=== PATIENT | female | born 1990 | race Caucasian/White ===

== ENCOUNTER 2018-01-01 22:08 | Emergency (ER) | END 2018-01-02 00:58 | disposition home or self-care (01) ==

== ENCOUNTER 2018-07-27 18:15 | Emergency (ER) | payer MEDICAID ==
[~2018-07-27] VITALS: Ht 167.6 cm; Wt 136.1 kg
[~2018-07-27 18:15] MED LIST: IBUP-1542 PO
[2018-07-27 18:33] VITALS: BP 137/68; PULSE 100; RESP 20; Ht 167.6 cm; Wt 136.1 kg
[2018-07-27] MEDS ORDERED: IBUPROFEN 800 MG TAB PO ONE (21:30)
[2018-07-27] MEDS ORDERED: IBUP800T48 PO (23:12)
--- NOTE | 2018-07-27 23:14 | ERD ---
ER Documentation Chief Complaint Chief Complaint lt ankle pain sice yesterday denies trauma HPI 27-year-old female presents with left ankle pain since yesterday. She was walking a lot but denies any fall or injury. Denies any additional joint pains, fevers, vomiting, shortness breath, chest pain, additional symptoms. ROS All systems reviewed and are negative except as per history of present illness. Medications Home Meds Active Scripts Ibuprofen* (Motrin*) 800 Mg Tab, 800 MG PO Q6, #20 TAB Prov:XIN HARDWIKC MD 07/27/18 Ibuprofen* (Motrin*) 600 Mg Tab, 600 MG PO Q6H PRN for PAIN AND OR ELEVATED TEMP, #30 TAB Prov:HÉCTOR CANALES NP 01/02/18 Reported Medications [none] Unknown Strength No Conflict Check 01/01/18 Allergies Allergies: Coded Allergies: Penicillins (Verified Allergy, Unknown, 07/27/18) PMhx/Soc Medical and Surgical Hx: pt denies Surgical Hx History of Surgery: Yes (caesarian section x 1) Hx Alcohol Use: No Hx Substance Use: No Hx Tobacco Use: No FmHx Family History: No diabetes, No coronary disease, No other Physical Exam Vitals Vital Signs Date Temp Pulse Resp B/P (MAP) Pulse Ox O2 O2 Flow FiO2 Time Delivery Rate 07/27/18 100.0 100 20 137/68 98 18:33 (91) Physical Exam Const: No acute distress. Morbidly obese. Head: Atraumatic Eyes: Normal Conjunctiva ENT: Normal External Ears, Nose and Mouth. Neck: Full range of motion. No meningismus. Resp: Clear to auscultation bilaterally Cardio: Regular rate and rhythm, no murmurs Abd: Soft, non tender, non distended. Normal bowel sounds Skin: No petechiae or rashes Back: No midline or flank tenderness Ext: No cyanosis, or edema. Mild tenderness and swelling around the left ankle joint. No warmth, erythema. No restricted range of motion weakness. No calf swelling or Homans sign. Neur: Awake and alert Psych: Normal Mood and Affect Results 24 hrs Current Medications Medications Dose Sig/Gaby Start Time Status Last (Trade) Ordered Route PRN Stop Time Admin Dose Reason Admin Ibuprofen 800 mg ONCE ONCE 07/27/18 DC 07/27/18 (Motrin) PO 21:30 07/27/18 21:29 21:31 Procedures/MDM X-ray left ankle 3V Interpreted by me: Bones: No fracture Joints: No dislocation Foreign Body: None. Impression-soft tissue swelling without evidence of fracture, dislocation left ankle x-ray X-ray left foot 3V Interpreted by me: Bones: No fracture Joints: No dislocation Foreign body: None. Impression-normal left foot x-ray Presents in on crutches. Left ankle Cade bandage was applied. Patient was given ibuprofen for pain. Patient presents with left ankle pain and swelling for last day. She may have an occult sprain. Current signs or symptoms do not suggest DVT, septic arthritis, fracture, dislocation, additional emergent causes of presenting complaints. She will be discharged home with ibuprofen, instructions for ice, elevation, primary care follow-up and return precautions for redness, fevers, new worsening symptoms. The patient was stable with no new complaints during the ER course. Clinically, there is no current evidence to suggest meningitis, sepsis, acute abdomen, pneumonia, stroke, acute coronary syndrome, pulmonary embolism, aortic dissection or any other emergent condition appearing to require further evaluation or hospitalization. Patient counseled regarding my diagnostic impression and care plan. Prior to discharge all questions answered. Pt agrees with treatment plan and understands strict return precautions. Pt is instructed to follow up with primary care provider within 24- 48 hours. Precautionary instructions provided including instructions to return to the ER if not improving or for any worsening or changing symptoms or concerns. Departure Diagnosis: Primary Impression: Ankle pain Chronicity: acute Laterality: left Qualified Codes: M25.572 - Pain in left ankle and joints of left foot Condition: Stable Patient Instructions: Sprain, Ankle, No X-Ray Additional Instructions: X-rays read as normal. May be sprained. Recheck for redness, fevers, new worsening symptoms. Ice and elevate at home. XIN HARDWICK MD Jul 27, 2018 23:14
== END 2018-07-27 23:56 | disposition home or self-care (01) ==
LOC: FTE 18:15
DX: M25.572 Pain in left ankle and joints of left foot (principal)
CPT/HCPCS: 73610; 73630; Z7502; Z7610